=== PATIENT | male | born 1985 ===

== ENCOUNTER 2018-05-10 18:58 | Emergency (ER) | payer SELFPAY ==
[2018-05-10 18:59] VITALS: BMI 26.1
[2018-05-10] MEDS ORDERED: Sodium Chloride 0.9% 1,000 ML IV STA (19:24)
[2018-05-10] MEDS ORDERED: Sodium Chloride 0.9% 1,000 ML ONE (19:50)
[2018-05-10 19:54] LABS: VENOUS BLOOD GAS BASE EXCESS -1.6 mmol/L (0.0-2.0); VENOUS BLOOD GAS PCO2 32 mmHg (40-60); VENOUS BLOOD GAS PO2 41 mm/Hg (30-55); VENOUS BLOOD PH 7.44 (7.32-7.43)
--- NOTE | 2018-05-10 19:56 | C.PDOC ---
History Of Present Illness 32 year old male with no significant PMHx presents to the ED c/o body aches for the past 1.5 weeks. Patient is also c/o fever, nausea, sore throat, non productive cough. Patient denies vomiting, diarrhea, recent travel, sick contacts, rash, SOB. Time Seen by Provider: 05/10/18 19:23 Chief Complaint (Nursing): Flu-like Symptoms History Per: Patient History/Exam Limitations: no limitations Onset/Duration Of Symptoms: Days Current Symptoms Are (Timing): Still Present Location Of Pain: Throat Sick Contacts (Context): None Associated Symptoms: Fever, Sore Throat, Cough, Nausea Ear Symptoms: Bilateral: None Recent travel outside of the [place]: No Additional History Per: Patient Past Medical History Reviewed: Historical Data, Nursing Documentation, Vital Signs Vital Signs: Last Vital Signs Temp 103 F H 05/10/18 19:12 Pulse 114 H 05/10/18 19:12 Resp 18 05/10/18 19:12 BP 124/78 05/10/18 19:12 Pulse Ox 97 05/10/18 19:59 - Medical History PMH: Cardia Arrhythmia (tachycardic) Surgical History: Appendectomy (2012) - [facility] Procedures CYSTOSCOPY NEC (04/25/14) LAPAROSCOP APPENDECTOMY (04/12/13) PERCUTAN NEEDLE BIOPSY OF PROSTATE (04/25/14) THERAPEUT DISTENT BLADD (04/25/14) Family History: States: Unknown Family Hx - Social History Hx Tobacco Use: No Hx Alcohol Use: No Hx Substance Use: No - Immunization History Hx Tetanus Toxoid Vaccination: No Hx Influenza Vaccination: No Hx Pneumococcal Vaccination: No Review Of Systems Except As Marked, All Systems Reviewed And Found Negative. Constitutional: Positive for: Fever ENT: Positive for: Throat Pain Respiratory: Positive for: Cough Gastrointestinal: Positive for: Nausea Physical Exam - Physical Exam Additional Physical Exam Comments: Constitutional: No acute distress. Head: Normocephalic. Atraumatic. Eyes: PERRL. ENT: Moist mucous membranes. No pharyngeal erythema or exudates Neck: Supple. No nuchal rigidity Cardiovascular: Regular rate. Radial pulses 2+ bilaterally. Tachycardic Chest: No tenderness. Respiratory: Clear to auscultation bilaterally. GI: Soft. Nontender. Nondistended. Back: No CVA tenderness. Musculoskeletal: No tenderness or swelling of extremities. Skin: No rash. Neurologic: Alert, no focal deficit. ED Course And Treatment - Laboratory Results Result Diagrams: 05/10/18 20:00 05/10/18 20:00 O2 Sat by Pulse Oximetry: 97 (ON RA) Pulse Ox Interpretation: Normal Medical Decision Making Medical Decision Making: Plan: * VBG * Labs * CXR * IV fluids * Toradol 30 mg IVP * Tylenol 975 mg PO * Zofran 8 mg IVP * Influenza A B test * Urine culture * UA CXR no pneumonia. Labs unremarkable. Patient states he feels a little better after treatment. Given patient has fever despite 10 day duration of illness, will treat empirically with antibiotics. Patient states he will f/u with clinic. Instructed to return to ED for worsening pain, breathing, vomiting, lethargy, or any other problem. Disposition - Disposition Referrals: [facility] [Outside] Disposition: HOME/ ROUTINE Disposition Time: 20:55 Condition: STABLE Prescriptions: Amoxicillin/Clavulanate [Augmentin 875 MG-125 MG] 1 tab PO BID #14 tab Instructions: Viral Syndrome (DC) Forms: [employer] (Syrian) - Clinical Impression Clinical Impression: Influenza-like illness - Scribe Statement The provider has reviewed the documentation as recorded by the Scribe Ben Hunter All medical record entries made by the Scribe were at my direction and personally dictated by me. I have reviewed the chart and agree that the record accurately reflects my personal performance of the history, physical exam, medical decision making, and the department course for this patient. I have also personally directed, reviewed, and agree with the discharge instructions and disposition.
[2018-05-10 20:05] LABS: BASO # 0.1 K/uL (0.0-0.2); BASO % 0.4 % (0.0-2.0); EOS # 0.1 K/uL (0.0-0.7); EOS % 0.9 % (0.0-4.0); HEMOGLOBIN 15.9 g/dL (12.0-18.0); LYMPH # 2.2 K/uL (1.0-4.3); LYMPH % 13.4 % (20.0-40.0); MEAN CELL VOLUME 86.8 fL (80.0-94.0); MEAN CORPUSCULAR HEMOGLOBIN 30.2 pg (27.0-31.0); MEAN CORPUSCULAR HGB CONC 34.8 g/dL (33.0-37.0); MEAN PLATELET VOLUME 8.9 fL (7.2-11.7); MONO # 0.7 K/uL (0.0-0.8); MONO % 4.3 % (0.0-10.0); NEUT # 13.4 K/uL (1.8-7.0); RBC 5.27 Mil/uL (4.40-5.90); RED CELL DISTRIBUTION WIDTH 12.5 % (11.5-14.5); WHITE BLOOD COUNT 16.5 K/uL (4.8-10.8)
[2018-05-10 20:17] LABS: URINE BILIRUBIN NEGATIVE (NEGATIVE); URINE BLOOD NEGATIVE (NEGATIVE); URINE CLARITY Clear (Clear); URINE COLOR Yellow (YELLOW); URINE GLUCOSE (UA) NORMAL (Normal); URINE LEUKOCYTE ESTERASE NEG Leu/uL (Negative); URINE PROTEIN NEGATIVE (NEGATIVE); URINE UROBILINOGEN NORMAL mg/dL (0.2-1.0)
[2018-05-10 20:18] LABS: ALB/GLOB RATIO 1.3 (1.0-2.1); ALBUMIN 4.5 g/dL (3.5-5.0); ALT/SGPT 31 U/L (21-72); AST/SGOT 23 U/L (17-59); BLOOD UREA NITROGEN 13 mg/dL (9-20); CALCIUM 9.3 mg/dl (8.6-10.4); GFR AFRICAN-AMERICAN > 60; GFR NON-AFRICAN AMERICAN > 60; LIPASE 93 U/L (23-300)
[2018-05-10 21:01] VITALS: BP 121/60; PULSE 84; RESP 15; TEMP 99.3; O2SAT 98
--- NOTE | 2018-05-11 11:24 | RAD ---
Date of service: 05/10/2018 HISTORY: fever COMPARISON: 05/02/2012. TECHNIQUE: Chest PA and lateral FINDINGS: LUNGS: No active pulmonary disease. PLEURA: No significant pleural effusion identified. No pneumothorax apparent. CARDIOVASCULAR: Normal. OSSEOUS STRUCTURES: No significant abnormalities. VISUALIZED UPPER ABDOMEN: Normal. OTHER FINDINGS: None. IMPRESSION: No active disease. No significant interval change compared to the prior examination(s). Concordant results with the preliminary interpretation rendered by the emergency department physician procedure.
== END 2018-05-10 21:54 | disposition home or self-care (01) ==
LOC: C.ER 18:58
DX: J11.1 Influenza due to unidentified influenza virus with other respiratory manifestations (principal)
CPT/HCPCS: 71046; 80053; 81001; 82803; 83690; 85025; 87086; 87804; 96374; 96375; 99284; J1885; J2405; J7030